=== PATIENT | male | born 1940 ===

== ENCOUNTER 2021-08-11 16:54 | Inpatient (IN) | payer OTHER ==
[~2021-08-11] VITALS: Ht 172.7 cm; Wt 49.9 kg
[2021-08-11 18:16] LABS: Basophils # (auto) 0.1 10 ^3/uL (0-0.2); Eosinophils # (auto) 0 10 ^3/uL (0-0.8); Lymphocytes # (auto) 0.7 10 ^3/uL (0.4-5.4); Monocytes # (auto) 0.7 10 ^3/uL (0-1.3); Neutrophils # (auto) 5.5 10 ^3/uL (1.6-8.6)
[2021-08-11 18:18] LABS: Basophils % (auto) 0.8 % (0.0-2.0); Eosinophils % (auto) 0.4 % (0.0-7.0); Hematocrit 52.4 % (41.0-53.0); Hemoglobin 17.7 g/dL (13.5-17.5); Mean Corpuscular Hemoglobin 35.6 pg (28.0-32.0); Mean Corpuscular Hgb Conc. 33.8 g/dL (32.0-36.0); Mean Corpuscular Volume 105.4 fL (80.0-100.0); Monocytes % (auto) 10.5 % (0.0-12.0); Neutrophils % (auto) 78.3 % (37.0-80.0); Nucleated Red Blood Cells % 0.1 %; Red Blood Cells 4.97 10^6/uL (4.5-5.90); Red Cell Distribution Width 14.3 % (11.8-14.3); White Blood Cell 7.1 10^3/uL (4.4-10.8)
[2021-08-11 18:27] LABS: Albumin 3.1 g/dL (3.4-5.0); Potassium 3.8 mmol/L (3.5-5.1)
[2021-08-11 18:33] LABS: BUN/Creatinine Ratio 19.2; Bilirubin, Total 2.2 mg/dL (0.2-1.0); Total Protein 7.2 g/dL (6.4-8.2)
[2021-08-11 18:43] LABS: Urine Bacteria FEW /hpf (None Seen); Urine Blood Negative /uL (Negative); Urine Hyaline Cast FEW /lpf (0 - 2); Urine Mucus FEW (None Seen); Urine Specific Gravity 1.012 (1.001-1.035); Urine WBC 9 /hpf (0 - 3)
[2021-08-11 18:46] LABS: INR 1.22 (0.9-1.15); Partial Thromboplastin Time 28.8 sec (23.6-33.0)
[2021-08-11] MEDS ORDERED: cefTRIAXone 1GM/50ML D5W 50 ML IV ONE (20:00)
[2021-08-11] MEDS ORDERED: AZITHROMYCIN 500MG/ 250ML 250 ML IV ONE (20:00)
[2021-08-11] MEDS ORDERED: DexAMETHasone SOD PHOS 10MG/1ML VIAL INJ IV ONE (20:00)
[2021-08-11] MEDS ORDERED: MORPHINE SULFATE INJECTION 2 MG/ML SYRG IV PRN (22:00)
[2021-08-11] MEDS ORDERED: ONDANSETRON HCL 4 MG/2 ML VIAL IV PRN (22:00)
[2021-08-11] MEDS ORDERED: NITROGLYCERIN 0.4 MG SL TAB SL PRN (22:00)
[2021-08-12 01:14] VITALS: BP 105/74
[2021-08-12] MEDS ORDERED: PANT40TA2 PO (02:53)
[2021-08-12 05:00] VITALS: BP 127/95
[2021-08-12 06:08] LABS: Basophils # (auto) 0 10 ^3/uL (0-0.2); Eosinophils # (auto) 0 10 ^3/uL (0-0.8); Lymphocytes # (auto) 0.3 10 ^3/uL (0.4-5.4); Mean Corpuscular Hgb Conc. 34.5 g/dL (32.0-36.0); Monocytes # (auto) 0.1 10 ^3/uL (0-1.3); Neutrophils % (auto) 91.9 % (37.0-80.0)
[2021-08-12 06:10] LABS: Basophils % (auto) 0.2 % (0.0-2.0); Hemoglobin 15.5 g/dL (13.5-17.5); Lymphocytes % (auto) 6.7 % (10.0-50.0); Mean Corpuscular Volume 104.4 fL (80.0-100.0); Monocytes % (auto) 1.2 % (0.0-12.0); Neutrophils # (auto) 4.2 10 ^3/uL (1.6-8.6); Nucleated Red Blood Cells % 0.1 %; Red Blood Cells 4.31 10^6/uL (4.5-5.90); Red Cell Distribution Width 14.3 % (11.8-14.3); White Blood Cell 4.6 10^3/uL (4.4-10.8)
[2021-08-12 06:22] LABS: Albumin 2.6 g/dL (3.4-5.0); Calcium 8.6 mg/dL (8.5-10.1); Potassium 3.4 mmol/L (3.5-5.1)
[2021-08-12 06:25] LABS: Bilirubin, Total 1.5 mg/dL (0.2-1.0); Total Protein 6.1 g/dL (6.4-8.2)
[2021-08-12 09:00] VITALS: BP 117/65
[2021-08-12] MEDS ORDERED: PANTOPRAZOLE 40 MG TAB PO SCH (10:00)
[2021-08-12] MEDS ORDERED: DexAMETHasone SOD PHOS 10MG/1ML VIAL INJ IV SCH (10:00)
[2021-08-12] MEDS: cefTRIAXone 1GM/50ML D5W 50 ML IV SCH (11:04)
[2021-08-12] MEDS: AZITHROMYCIN 500MG/ 250ML 250 ML IV SCH (11:04)
[2021-08-12 13:00] VITALS: BP 120/79
[2021-08-12] MEDS ORDERED: POTASSIUM CHL 20 Meq TABLET PO ONE (16:00)
[2021-08-12] MEDS ORDERED: THIAMINE HCL 100 MG TAB PO ONE (16:15)
[2021-08-12] MEDS ORDERED: FOLIC ACID 1 MG TAB PO ONE (16:15)
[2021-08-12] MEDS ORDERED: MULTIPLE VITAMINS W/ MINERALS TAB PO ONE (16:15)
[2021-08-12] MEDS ORDERED: NICOTINE 14 MG/24HR TOPICAL PATCH TD ONE (16:15)
[2021-08-12] MEDS ORDERED: ALBUTEROL SULF 2.5 MG/0.5ML(0.5%) NEB SOLN NEB PRN (16:15)
[2021-08-12 17:00] VITALS: BP 122/54
[2021-08-12] MEDS: IPRATROPIUM BROM 0.5 MG/2.5ML INH SOL NEB SCH ×2 (20:08→22:59)
[2021-08-12] MEDS: ALBUTEROL SULF 2.5 MG/0.5ML(0.5%) NEB SOLN NEB SCH ×2 (20:08→22:59)
[2021-08-12] MEDS: PANTOPRAZOLE 40 MG TAB PO SCH (21:48)
[2021-08-12] MEDS: methylPREDNISolone SOD SUCC 40 MG/ML VL IV SCH (21:49)
[2021-08-12] MEDS: BUDESONIDE (INHALATION) 0.5 MG/2 ML NEB NEB SCH (22:59)
[2021-08-12 23:51] VITALS: BP 108/73
[2021-08-13] MEDS: ALBUTEROL SULF 2.5 MG/0.5ML(0.5%) NEB SOLN NEB SCH ×5 (02:00→22:58)
[2021-08-13] MEDS: IPRATROPIUM BROM 0.5 MG/2.5ML INH SOL NEB SCH ×5 (02:00→22:57)
[2021-08-13 02:57] VITALS: BP 108/73
[2021-08-13 05:23] VITALS: BP 121/73
[2021-08-13 05:51] LABS: Basophils # (auto) 0 10 ^3/uL (0-0.2); Eosinophils # (auto) 0 10 ^3/uL (0-0.8); Lymphocytes # (auto) 0.4 10 ^3/uL (0.4-5.4); Monocytes # (auto) 0.2 10 ^3/uL (0-1.3); Monocytes % (auto) 2.6 % (0.0-12.0); Red Cell Distribution Width 14.4 % (11.8-14.3)
[2021-08-13 05:54] LABS: Basophils % (auto) 0.2 % (0.0-2.0); Hematocrit 45.8 % (41.0-53.0); Hemoglobin 15.7 g/dL (13.5-17.5); Lymphocytes % (auto) 4.7 % (10.0-50.0); Mean Corpuscular Hgb Conc. 34.3 g/dL (32.0-36.0); Neutrophils # (auto) 6.9 10 ^3/uL (1.6-8.6); Neutrophils % (auto) 92.5 % (37.0-80.0); Red Blood Cells 4.36 10^6/uL (4.5-5.90); White Blood Cell 7.5 10^3/uL (4.4-10.8)
[2021-08-13 06:06] LABS: INR 1.19 (0.9-1.15)
[2021-08-13 06:14] LABS: Magnesium 2.2 mg/dL (1.6-2.6); Potassium 4.9 mmol/L (3.5-5.1)
[2021-08-13 06:16] LABS: Bilirubin, Total 1.3 mg/dL (0.2-1.0)
[2021-08-13 08:55] VITALS: BP 152/74
[2021-08-13] MEDS: cefTRIAXone 1GM/50ML D5W 50 ML IV SCH (09:40)
[2021-08-13] MEDS: methylPREDNISolone SOD SUCC 40 MG/ML VL IV SCH ×2 (09:41→21:46)
[2021-08-13] MEDS: FOLIC ACID 1 MG TAB PO SCH (09:41)
[2021-08-13] MEDS: MULTIPLE VITAMINS W/ MINERALS TAB PO SCH (09:42)
[2021-08-13] MEDS: THIAMINE HCL 100 MG TAB PO SCH (09:42)
[2021-08-13] MEDS: PANTOPRAZOLE 40 MG TAB PO SCH ×2 (09:42→21:46)
[2021-08-13] MEDS: NICOTINE 14 MG/24HR TOPICAL PATCH TD SCH (09:43)
[2021-08-13] MEDS: ENOXAPARIN SOD 40 MG/0.4 ML SYRINGE SC SCH (10:00)
[2021-08-13] MEDS: BUDESONIDE (INHALATION) 0.5 MG/2 ML NEB NEB SCH ×2 (10:34→22:58)
[2021-08-13 13:00] VITALS: BP_SYST 100; BP_SYST 106; BP_DIAS 63; BP_DIAS 66
[2021-08-13] MEDS: AZITHROMYCIN 500MG/ 250ML 250 ML IV SCH (13:39)
[2021-08-13 17:00] VITALS: BP 100/63
[2021-08-13 22:00] VITALS: BP 118/69
[2021-08-14] MEDS: ALBUTEROL SULF 2.5 MG/0.5ML(0.5%) NEB SOLN NEB SCH ×6 (02:35→21:58)
[2021-08-14] MEDS: IPRATROPIUM BROM 0.5 MG/2.5ML INH SOL NEB SCH ×6 (02:35→21:58)
[2021-08-14 05:00] VITALS: BP 127/78
[2021-08-14] MEDS: BUDESONIDE (INHALATION) 0.5 MG/2 ML NEB NEB SCH ×2 (07:23→21:58)
[2021-08-14 09:00] VITALS: BP 115/69
[2021-08-14] MEDS: cefTRIAXone 1GM/50ML D5W 50 ML IV SCH (09:12)
[2021-08-14] MEDS: methylPREDNISolone SOD SUCC 40 MG/ML VL IV SCH (09:13)
[2021-08-14] MEDS: PANTOPRAZOLE 40 MG TAB PO SCH ×2 (09:17→22:00)
[2021-08-14] MEDS: FOLIC ACID 1 MG TAB PO SCH (09:18)
[2021-08-14] MEDS: MULTIPLE VITAMINS W/ MINERALS TAB PO SCH (09:18)
[2021-08-14] MEDS: ENOXAPARIN SOD 40 MG/0.4 ML SYRINGE SC SCH (09:19)
[2021-08-14] MEDS: NICOTINE 14 MG/24HR TOPICAL PATCH TD SCH (09:26)
[2021-08-14] MEDS: THIAMINE HCL 100 MG TAB PO SCH (09:26)
[2021-08-14 13:00] VITALS: BP 116/71
[2021-08-14] MEDS: AZITHROMYCIN 500MG/ 250ML 250 ML IV SCH (14:38)
[2021-08-14 17:00] VITALS: BP 114/80
[2021-08-14 22:00] VITALS: BP 105/61
[2021-08-15] MEDS: ALBUTEROL SULF 2.5 MG/0.5ML(0.5%) NEB SOLN NEB SCH ×6 (02:00→22:59)
[2021-08-15] MEDS: IPRATROPIUM BROM 0.5 MG/2.5ML INH SOL NEB SCH ×6 (02:00→22:59)
[2021-08-15 05:00] VITALS: BP 123/77
[2021-08-15] MEDS: BUDESONIDE (INHALATION) 0.5 MG/2 ML NEB NEB SCH ×2 (05:52→23:00)
[2021-08-15 08:59] VITALS: BP 129/76
[2021-08-15] MEDS: THIAMINE HCL 100 MG TAB PO SCH (09:45)
[2021-08-15] MEDS: cefTRIAXone 1GM/50ML D5W 50 ML IV SCH (09:45)
[2021-08-15] MEDS: predniSONE 20 MG TAB PO SCH (09:45)
[2021-08-15] MEDS: FOLIC ACID 1 MG TAB PO SCH (09:45)
[2021-08-15] MEDS: MULTIPLE VITAMINS W/ MINERALS TAB PO SCH (09:45)
[2021-08-15] MEDS: ENOXAPARIN SOD 40 MG/0.4 ML SYRINGE SC SCH (09:46)
[2021-08-15] MEDS: PANTOPRAZOLE 40 MG TAB PO SCH ×2 (09:46→21:30)
[2021-08-15] MEDS: NICOTINE 14 MG/24HR TOPICAL PATCH TD SCH (09:49)
[2021-08-15] MEDS: AZITHROMYCIN 500MG/ 250ML 250 ML IV SCH (11:34)
[2021-08-15 13:36] VITALS: BP 106/72
[2021-08-15] MEDS ORDERED: dilTIAZem 25 MG/5 ML VIAL IV ONE (14:00)
[2021-08-15] MEDS ORDERED: DIGOXIN 0.25 MG TAB PO ONE ×2 (16:00→18:00)
[2021-08-15 17:00] VITALS: BP 101/68
[2021-08-15] MEDS: dilTIAZem 120MG ER CAP PO SCH (18:29)
[2021-08-15 21:47] VITALS: BP 118/66
[2021-08-16] MEDS: IPRATROPIUM BROM 0.5 MG/2.5ML INH SOL NEB SCH ×6 (02:22→22:00)
[2021-08-16] MEDS: ALBUTEROL SULF 2.5 MG/0.5ML(0.5%) NEB SOLN NEB SCH ×6 (02:22→22:00)
[2021-08-16 03:42] VITALS: BP 118/66
[2021-08-16 05:30] VITALS: BP 144/74
[2021-08-16 09:00] VITALS: BP 109/66
[2021-08-16] MEDS: NICOTINE 14 MG/24HR TOPICAL PATCH TD SCH (09:25)
[2021-08-16] MEDS: cefTRIAXone 1GM/50ML D5W 50 ML IV SCH (09:25)
[2021-08-16] MEDS: dilTIAZem 120MG ER CAP PO SCH (10:00)
[2021-08-16] MEDS: predniSONE 20 MG TAB PO SCH (10:00)
[2021-08-16] MEDS: PANTOPRAZOLE 40 MG TAB PO SCH ×2 (10:00→22:22)
[2021-08-16] MEDS: THIAMINE HCL 100 MG TAB PO SCH (10:00)
[2021-08-16] MEDS: ENOXAPARIN SOD 40 MG/0.4 ML SYRINGE SC SCH (10:00)
[2021-08-16] MEDS: MULTIPLE VITAMINS W/ MINERALS TAB PO SCH (10:00)
[2021-08-16] MEDS: DIGOXIN 0.125 MG TAB PO SCH (10:00)
[2021-08-16] MEDS: FOLIC ACID 1 MG TAB PO SCH (10:00)
[2021-08-16] MEDS: AZITHROMYCIN 500MG/ 250ML 250 ML IV SCH (11:29)
[2021-08-16] MEDS: BUDESONIDE (INHALATION) 0.5 MG/2 ML NEB NEB SCH ×2 (11:39→22:00)
[2021-08-16 13:00] VITALS: BP 123/81
[2021-08-16] MEDS ORDERED: HYDROcodone-ACET 5/325MG TAB PO PRN (13:15)
[2021-08-16] MEDS ORDERED: MORPHINE SULFATE INJECTION 2 MG/ML SYRG IV PRN (13:15)
[2021-08-16 17:00] VITALS: BP 125/92
[2021-08-16 21:47] VITALS: BP 131/77
[2021-08-17] MEDS: ALBUTEROL SULF 2.5 MG/0.5ML(0.5%) NEB SOLN NEB SCH ×6 (02:51→22:00)
[2021-08-17] MEDS: IPRATROPIUM BROM 0.5 MG/2.5ML INH SOL NEB SCH ×6 (02:52→22:00)
[2021-08-17 05:23] VITALS: BP 123/75
[2021-08-17 06:50] LABS: INR 1.21 (0.9-1.15)
[2021-08-17 06:52] LABS: Calcium 8.8 mg/dL (8.5-10.1)
[2021-08-17 06:53] LABS: Basophils # (auto) 0 10 ^3/uL (0-0.2); Basophils % (auto) 0.2 % (0.0-2.0); Eosinophils # (auto) 0 10 ^3/uL (0-0.8); Eosinophils % (auto) 0.2 % (0.0-7.0); Hematocrit 46.8 % (41.0-53.0); Hemoglobin 16.2 g/dL (13.5-17.5); Lymphocytes # (auto) 0.6 10 ^3/uL (0.4-5.4); Lymphocytes % (auto) 9.6 % (10.0-50.0); Mean Corpuscular Hemoglobin 36.5 pg (28.0-32.0); Mean Corpuscular Hgb Conc. 34.6 g/dL (32.0-36.0); Mean Corpuscular Volume 105.3 fL (80.0-100.0); Monocytes # (auto) 0.7 10 ^3/uL (0-1.3); Monocytes % (auto) 11.2 % (0.0-12.0); Neutrophils # (auto) 4.7 10 ^3/uL (1.6-8.6); Neutrophils % (auto) 78.8 % (37.0-80.0); Nucleated Red Blood Cells % 0.1 %; Red Blood Cells 4.45 10^6/uL (4.5-5.90); Red Cell Distribution Width 13.9 % (11.8-14.3)
[2021-08-17 06:55] LABS: BUN/Creatinine Ratio 30.4; Magnesium 2.4 mg/dL (1.6-2.6)
[2021-08-17] MEDS: BUDESONIDE (INHALATION) 0.5 MG/2 ML NEB NEB SCH ×2 (07:41→19:17)
[2021-08-17] MEDS: predniSONE 20 MG TAB PO SCH (10:15)
[2021-08-17] MEDS: FOLIC ACID 1 MG TAB PO SCH (10:15)
[2021-08-17] MEDS: THIAMINE HCL 100 MG TAB PO SCH (10:15)
[2021-08-17] MEDS: PANTOPRAZOLE 40 MG TAB PO SCH ×2 (10:16→21:58)
[2021-08-17] MEDS: dilTIAZem 120MG ER CAP PO SCH (10:16)
[2021-08-17] MEDS: DIGOXIN 0.125 MG TAB PO SCH (10:16)
[2021-08-17] MEDS: MULTIPLE VITAMINS W/ MINERALS TAB PO SCH (10:16)
[2021-08-17] MEDS: ENOXAPARIN SOD 40 MG/0.4 ML SYRINGE SC SCH (10:17)
[2021-08-17] MEDS: NICOTINE 14 MG/24HR TOPICAL PATCH TD SCH (10:17)
[2021-08-17 18:11] VITALS: BP 106/62
[2021-08-17 22:44] VITALS: BP 119/66
[2021-08-18] MEDS: IPRATROPIUM BROM 0.5 MG/2.5ML INH SOL NEB SCH ×5 (02:23→19:10)
[2021-08-18] MEDS: ALBUTEROL SULF 2.5 MG/0.5ML(0.5%) NEB SOLN NEB SCH ×5 (02:23→19:10)
[2021-08-18 05:06] VITALS: BP 128/69
[2021-08-18] MEDS: BUDESONIDE (INHALATION) 0.5 MG/2 ML NEB NEB SCH ×2 (06:31→19:10)
[2021-08-18 08:48] VITALS: BP 119/63
[2021-08-18] MEDS: FOLIC ACID 1 MG TAB PO SCH (11:05)
[2021-08-18] MEDS: dilTIAZem 120MG ER CAP PO SCH (11:06)
[2021-08-18] MEDS: DIGOXIN 0.125 MG TAB PO SCH (11:06)
[2021-08-18] MEDS: predniSONE 20 MG TAB PO SCH (11:06)
[2021-08-18] MEDS: THIAMINE HCL 100 MG TAB PO SCH (11:06)
[2021-08-18] MEDS: PANTOPRAZOLE 40 MG TAB PO SCH (11:07)
[2021-08-18] MEDS: ENOXAPARIN SOD 40 MG/0.4 ML SYRINGE SC SCH (11:07)
[2021-08-18] MEDS: MULTIPLE VITAMINS W/ MINERALS TAB PO SCH (11:07)
[2021-08-18] MEDS: NICOTINE 14 MG/24HR TOPICAL PATCH TD SCH (11:07)
[2021-08-18 13:00] VITALS: BP 123/73
[2021-08-18] MEDS ORDERED: ALBUAER3 IN (15:33)
[2021-08-18] MEDS ORDERED: DILT1TAB4 PO (15:33)
[2021-08-18] MEDS ORDERED: NIC21P TOP (15:33)
[2021-08-18] MEDS ORDERED: PANT40TA2 PO (15:33)
[2021-08-18] MEDS ORDERED: MULT-351 PO (15:33)
[2021-08-18] MEDS ORDERED: LEVO750T8 PO (15:34)
[2021-08-18] MEDS ORDERED: PRED20TA2 PO (15:34)
[2021-08-18 16:47] VITALS: BP 118/66
[2021-08-18 19:58] VITALS: BP 118/66
== END 2021-08-18 19:43 | disposition home or self-care (01) | DRG 477 ==
LOC: ER 16:54 → TELE 21:48 → TELE-EAST 23:19 → TELE-WESTW 08-12 15:55
PROVIDERS: ADMIT Nurse Practitioner; ATTEND Internal Medicine
PROC: 0QB03ZX Excision of Lumbar Vertebra, Percutaneous Approach, Diagnostic (ICD-10-PCS; principal; 2021-08-16)
DX: C79.51 Secondary malignant neoplasm of bone (principal); J18.9 Pneumonia, unspecified organism; J96.01 Acute respiratory failure with hypoxia; C22.0 Liver cell carcinoma; E44.0 Moderate protein-calorie malnutrition; J44.1 Chronic obstructive pulmonary disease with (acute) exacerbation; C25.9 Malignant neoplasm of pancreas, unspecified; C78.00 Secondary malignant neoplasm of unspecified lung; D68.9 Coagulation defect, unspecified; J44.0 Chronic obstructive pulmonary disease with (acute) lower respiratory infection; K70.30 Alcoholic cirrhosis of liver without ascites; E87.6 Hypokalemia; D69.6 Thrombocytopenia, unspecified; F10.10 Alcohol abuse, uncomplicated; I10 Essential (primary) hypertension; F17.210 Nicotine dependence, cigarettes, uncomplicated; I27.20 Pulmonary hypertension, unspecified; Z20.822 Contact with and (suspected) exposure to COVID-19; R00.0 Tachycardia, unspecified; Z68.22 Body mass index [BMI] 22.0-22.9, adult; Z71.6 Tobacco abuse counseling; Z71.41 Alcohol abuse counseling and surveillance of alcoholic
CPT/HCPCS: 10022; 36415; 36600; 71045; 71275; 72131; 74176; 77012; 78306; 80048; 80053; 81001; 82105; 82247; 82306; 82728; 82805; 83036; 83605; 83615; 83690; 83735; 83880; 84132; 84443; 84484; 85025; 85379; 85610; 85730; 86301; 87040; 87426; 93005; 93306; 93970; 94640; 96374; 96375; 97110; 97116; 97530; G0378; J0696; J1100